=== PATIENT | female | born 1950 | race Caucasian/White ===

== ENCOUNTER → 2018-07-03 09:02 | Outpatient (CLI) | payer MEDICARE, SELFPAY ==
--- NOTE | 2018-07-04 16:00 | PM.PFT.1 ---
Pulmonary Function Test Referral & Results Date Patient Seen: 07/03/18 Requesting provider: Nakul Lyle Indication: Dyspnea Results: The spirometry demonstrates an FVC of 2.95 L which is 80% of predicted. The FEV1 was measured at 2.29 L which is 82% of predicted. The FEV1/FVC ratio was 78 which is 102% of predicted. No bronchodilator was administered, per physician order Lung volumes show an SVC of 2.63 L which is 78% of predicted. The diffusing capacity was measured at 18.56 which is 59% of predicted. No hemoglobin value was provided, so no correction for potential anemia could be made, if appropriate. The maximum voluntary ventilation was reduced Interpretation: This study demonstrates mild obstructive lung disease based on reduction in FEV1. There is also mild reduction in lung volumes suggesting an element of restrictive lung disease There is a more significant reduction in diffusing capacity suggesting more disease at the capillary alveolar level. Clinical correlation suggested
== END ==
PROVIDERS: PCP Family Medicine; Visit Provider Internal Medicine Cardiovascular Disease
DX: R06.09 Other forms of dyspnea (principal)
CPT/HCPCS: 94010; 94726; 94729

== ENCOUNTER 2020-09-02 14:49 | Emergency (ER) | payer MEDICARE, SELFPAY ==
--- NOTE | 2020-09-02 14:53 | DI.RAD.S_ITS ---
PROCEDURE: XR ANKLE RT MIN 3V INDICATIONS: glf, unable to bear weight TECHNIQUE: 3 views of the ankle were acquired. COMPARISON: None. FINDINGS: Bones: There is a mildly displaced distal fibular fracture seen which is at and below the level of the syndesmosis. The syndesmosis not appear frankly widened. There is mild widening of the ankle mortise. Focal irregularity is seen involving the distal medial malleolus, with likely remote avulsion fracture fragments. No william posterior malleolar fracture can be seen. The talar dome demonstrates no william abnormality. No suspicious lytic or blastic lesions are seen. Age-appropriate bony degenerative changes are seen. Plantar and Achilles calcaneal spurs are seen. Soft tissues: Associated soft tissue swelling is seen, particular laterally. IMPRESSION: Distal fibular fracture, with widening of the ankle mortise. Remote appearing avulsion fractures of the medial malleolus. If it would be helpful for clinical management decision making, please consider a dedicated ankle CT. Dictated by: Garcia Mcdowell M.D. on 09/02/2020 at 14:10 Approved by: Garcia Mcdowell M.D. on 09/02/2020 at 14:13
--- NOTE | 2020-09-02 14:57 | ED.LOWEXIN ---
HPI - Extremity Injury (Lower) General Chief Complaint: Extremity Injury, Lower Stated Complaint: thinks broke her right ankle Time Seen by Provider: 09/02/20 14:50 Source: patient Mode of arrival: Wheelchair Limitations: no limitations History of Present Illness HPI Narrative: 69-year-old female nonsmoker with history of hypertension presents with a chief complaint of an injury to her right ankle suffered prior to her arrival. She was walking through a doorway and misjudged the distance when she slipped and rolled her right ankle. She denies any knee or hip pain. She denies any head, neck or back pain. Her pain is worse with movement and improves with rest. She has swelling over her lateral ankle and points to this region regarding the majority of her pain. She denies any history of the same. MD complaint: ankle injury Onset (ago): hour(s) Type of Injury: blunt and inversion Place: home Severity: moderate Relieving factors: rest Exacerbating factors: weight bearing, movement and palpation Context: fall Associated symptoms: snap/pop sensation, swelling and able to partially bear weight Other symptoms: none Treatments prior to arrival: cold therapy Related Data Home Medications Medication Instructions Recorded Confirmed MULTIVITAMIN (#MULTIPLE VITAMINS) 1 cap PO QDAY #0 12/11/11 VITAMIN D 400 iu PO QDAY #0 12/11/11 zolpidem mg PO HS #0 05/02/12 citalopram 10 mg PO QDAY #0 09/14/17 ibuprofen 3 tab PO PRN PRN #0 09/14/17 Previous Rx's Medication Instructions Recorded aspirin 81 mg PO QDAY #30 tab 09/16/17 metoprolol succinate [Toprol XL] 25 mg PO QDAY #30 tab 09/16/17 Allergies Allergy/AdvReac Type Severity Reaction Status Date / Time No Known Allergies Allergy Verified 09/02/20 17:11 Review of Systems Constitutional Constitutional: Denies chills, Denies fatigue, Denies fever(s), Denies frequent falls, Denies lethargy and Denies weakness Eyes Eyes: Denies change in vision, Denies eye discharge, Denies irritation and Denies loss of vision ENT Ears, Nose, Mouth, and Throat: Denies change in voice, Denies dizziness, Denies neck pain, Denies sore throat and Denies throat swelling Cardiovascular Cardiovascular: Denies chest pain, Denies irregular heart rhythm, Denies lightheadedness, Denies palpitations, Denies dyspnea, Denies dyspnea on exertion and Denies orthopnea Respiratory Respiratory: Denies cough, Denies dyspnea, Denies dyspnea on exertion and Denies wheezing Gastrointestinal Gastrointestinal: Denies abdominal pain, Denies change in bowel habits, Denies diarrhea, Denies nausea and Denies vomiting Musculoskeletal Musculoskeletal: Reports arthralgias, Reports joint swelling, Reports limited range of motion, Denies neck pain and Denies numbness Integumentary/Breasts Skin/Breast: Denies pruritus, Denies erythema, Denies rash and Denies wounds Neurologic Neurologic: Denies behavioral changes, Denies confusion, Denies dizziness, Denies frequent falls, Denies loss of vision, Denies numbness and Denies weakness Psychiatric Psychiatric: Denies anxiety, Denies behavioral changes, Denies confusion, Denies depression, Denies homicidal ideation and Denies suicidal ideation Endocrine Endocrine: Denies fatigue, Denies flushing and Denies palpitations Hematologic/Lymphatic Hematologic/Lymphatic: Denies easy bruising Allergic/Immunologic Allergic/Immunologic: Denies urticaria, Denies throat swelling and Denies wheezing Patient History Social History Smoking Status: Never smoker Smoking Status: Never smoker alcohol intake frequency: 0-2 drinks per day Substance Use Type: does not use Exam Narrative Exam Narrative: GEN: AOx3 and in mild distress EYES: Pupils are equal, round, and reactive to light and accommodation. Extraoccular muscles are intact bilaterally. There is no subconjunctival hemorrhage or exudate. CHEST: Lungs are clear to auscultation bilaterally and free of wheezes, rales, or rhonchi. Heart rate is regular rhythm, there are no murmurs, clicks, rubs, or gallops. There is no chest wall tenderness. ABD: Abdomen is soft and nontender. There is no guarding or rebound. Bowel sounds are normal in all 4 quadrants. There is no mass or organomegaly. EXT: Full but painful range of motion of right ankle. Swelling with tenderness to palpation over lateral malleolus. No pain over talus or 5th metatarsal. Closed, isolated and neurovascularly intact SKIN: Warm, pink, and dry. No erythema or rash Initial Vital Signs Initial Vital Signs: Vital Signs Temperature 96.7 F L 09/02/20 15:01 Pulse Rate 60 09/02/20 15:01 Respiratory Rate 16 09/02/20 15:01 Blood Pressure 138/65 09/02/20 15:01 Pulse Oximetry 98 09/02/20 15:01 Procedures Orthopedic Splinting/Casting Injury #1: Side: right Lower Extremity Injury Location: ankle Lower Extremity Immobilizer: posterior splint and stirrup splint Other Orthopedic Equipment: walker Post splinting neuro exam: intact Post splinting vascular exam: intact Placed by: Nursing Course Orders Ordered: ED Orders 09/02/20 14:53 XR ankle RT min 3V Stat Discontinued Medications Hydrocodone Bitart/Acetaminophen (Hydrocodone/Acet 5/325 Prepack) 1 bottle MISC SEEINSTR ONE Stop: 09/02/20 17:05 Last Admin: 09/02/20 17:08 Dose: 1 bottle Documented by: RICO Consultations Consultation #1: Discussed with on-call Orthopedics, and agreement with splinting, nonweightbearing and follow up Vital Signs Vital signs: Vital Signs - 8 hr 09/02/20 15:01 09/02/20 17:09 Temperature 96.7 F L Pulse Rate 60 54 L Respiratory Rate 16 Blood Pressure 138/65 134/62 Pulse Oximetry 98 98 MDM - Extremity Injury (Lower) Imaging Data Extremity x-ray #1: Radiologist's Impression: Magalie Cervantes 69 F [address] [id number] ReportSigned Patient: Harjit Cervantes#: [id number]: 1950cct:[id number]/Sex: 69 / FDate of Service: 09/02/20Loc: EDAccession Number: [id number] Procedure: XR ankle RT min 3V Ordering Provider: Colin Villanueva D.O. PROCEDURE: XR ANKLE RT MIN 3V INDICATIONS: glf, unable to bear weight TECHNIQUE: 3 views of the ankle were acquired. COMPARISON: None. FINDINGS: Bones: There is a mildly displaced distal fibular fracture seen which is at and below the level of the syndesmosis. The syndesmosis not appear frankly widened. There is mild widening of the ankle mortise. Focal irregularity is seen involving the distal medial malleolus, with likely remote avulsion fracture fragments. No william posterior malleolar fracture can be seen. The talar dome demonstrates no william abnormality. No suspicious lytic or blastic lesions are seen. Age-appropriate bony degenerative changes are seen. Plantar and Achilles calcaneal spurs are seen. Soft tissues: Associated soft tissue swelling is seen, particular laterally. IMPRESSION: Distal fibular fracture, with widening of the ankle mortise. Remote appearing avulsion fractures of the medial malleolus. If it would be helpful for clinical management decision making, please consider a dedicated ankle CT. Dictated by: Garcia Mcdowell M.D. on 09/02/2020 at 14:10 Approved by: Garcia Mcdowell M.D. on 09/02/2020 at 14:13 Discharge Plan Departure Patient Disposition: Home Clinical Impression: Fracture of distal end of fibula Qualifiers: Encounter type: initial encounter Fracture type: closed Fracture morphology: other fracture Laterality: right Qualified Code(s): S82.831A - Other fracture of upper and lower end of right fibula, initial encounter for closed fracture Activity Restrictions/Additional Instructions: *You have been diagnosed with [distal fibula fracture] *What to do: *Take medications as directed *Follow up with [facility] in 2-3 days, call for an appointment. Let them know you were seen in the Emergency Department and that we ask that you be seen in follow up *Return to ER if you should have any new, worsening or concerning symptoms Splint Care: Keep splint clean and dry. Elevated affected body part to decrease swelling. OK to use ice pack on the affected body part. Use for 15-20 minutes each time, for 5-6x per day. If you develop worsening pain, numbness, tingling, discoloration of the affected body part, loosen the splint by loosening the KARTIK wrap, and either see your doctor for an urgent re-assessment, or return to the Emergency Department. Return to the Emergency Department for any new or worsening symptoms. Prescriptions: No Action MULTIVITAMIN (#MULTIPLE VITAMINS) 1 cap PO QDAY Qty: 0 RF: 0 VITAMIN D 400 iu PO QDAY Qty: 0 RF: 0 zolpidem 5 MG tablet PO HS Qty: 0 RF: 0 citalopram 10 MG tablet 10 mg PO QDAY Qty: 0 RF: 0 ibuprofen 200 MG tablet 3 tab PO PRN PRNQty: 0 RF: 0 aspirin 81 MG tablet,delayed release (DR/EC) 81 mg PO QDAY Qty: 30 RF: 0 metoprolol succinate [Toprol XL] 25 MG tablet extended release 24 hr 25 mg PO QDAY Qty: 30 RF: 0 Referrals: Tiffanie Mojica MD [Primary Care Provider] - Dainel Gonzalez MD [Physician] -
[2020-09-02 15:01] VITALS: BP 138/65; PULSE 60; RESP 16; TEMP 35.9; O2SAT 98
[2020-09-02] MEDS: HYDROCODONE/ACET 5/325 PREPACK 1 BOTTLE MISC (17:08)
[2020-09-02 17:09] VITALS: BP 134/62; PULSE 54; O2SAT 98
== END 2020-09-02 17:23 | disposition home or self-care (01) ==
PROVIDERS: Emergency Provider Emergency Medicine; PCP Family Medicine
DX: S82.831A Other fracture of upper and lower end of right fibula, initial encounter for closed fracture (principal); W19.XXXA Unspecified fall, initial encounter
CPT/HCPCS: 29515; 73610; 99283

== ENCOUNTER → 2023-02-19 13:31 | Outpatient (CLI) | payer MEDICARE, MEDICAID, SELFPAY ==
[2023-02-19 19:52] LABS: HEMOLYSIS < 15 (0-50); Iron 82 ug/dL (37-170)
[2023-02-19 20:04] LABS: Percent Iron Saturation 26 % (15-50); Total Iron Binding Capacity 312 ug/dL (265-497); Transferrin 224 mg/dL (206-381)
[2023-02-19 20:07] LABS: NT-proBNP (BNP-Adult 18+) 203 pg/mL (<125)
[2023-02-19 20:33] LABS: Ferritin 69 ng/mL (11-264)
[2023-02-22 17:20] LABS: Immunoglobulin A, Serum 291 mg/dL (64-422); Immunoglobulin G,Serum 990 mg/dL (586-1602); Immunoglobulin M, Serum 141 mg/dL (26-217)
== END ==
PROVIDERS: PCP Physician Assistant; Visit Provider Internal Medicine Cardiovascular Disease
DX: D64.9 Anemia, unspecified (principal); E78.5 Hyperlipidemia, unspecified; G47.33 Obstructive sleep apnea (adult) (pediatric); I48.0 Paroxysmal atrial fibrillation; R06.02 Shortness of breath; R26.89 Other abnormalities of gait and mobility; R93.1 Abnormal findings on diagnostic imaging of heart and coronary circulation; R94.31 Abnormal electrocardiogram [ECG] [EKG]
CPT/HCPCS: 82728; 82784; 83540; 83550; 83735; 83880; 84155; 86334